=== PATIENT | male | born 1940 | race Caucasian/White ===

== ENCOUNTER 2021-05-25 10:32 | Emergency (ER) | payer SELFPAY ==
[~2021-05-25] VITALS: Ht 175.3 cm; Wt 79.5 kg
[2021-05-25] MEDS ORDERED: XARELTO10 MG PO (11:57)
[2021-05-25] MEDS ORDERED: LISINOPRIL5 MG PO (12:00)
[2021-05-25 12:25] VITALS: BP 129/73
== END 2021-05-25 12:25 | disposition home or self-care (01) | DRG 156 ==
LOC: ED 10:32
DX: H93.8X3 Other specified disorders of ear, bilateral (principal)

== ENCOUNTER 2022-05-08 01:12 | Inpatient (IN) | payer SELFPAY ==
[~2022-05-08] VITALS: Ht 175.3 cm; Wt 78.0 kg
[~2022-05-08 01:12] MED LIST: LISINOPRIL5 MG PO; XARELTO10 MG PO
--- NOTE | 2022-05-08 01:32 | NUR ---
IN ROOM ER 3
[2022-05-08 01:44] LABS: HEMATOCRIT 33.3 % (39.0-50.0); HEMOGLOBIN 11.5 g/dl (14.0-18.0); IMMATURE GRANULOCYTES 2.1 % (0.0-5.0); MEAN CELL VOLUME 89.5 fL CALC (80.0-100.0); MEAN CORPUSCULAR HGB 30.9 pG CALC (26.0-32.0); MEAN CORPUSCULAR HGB CONC 34.5 g/dL CAL (32.0-36.0); NEUT# 11.34 thou/uL (1.82-7.42); RED BLOOD COUNT 3.72 mill/uL (4.70-6.10); RED CELL DISTRI WIDTH 12.3 % (11.5-15.5)
[2022-05-08 01:52] LABS: URINE BILIRUBIN - DIPSTICK NEGATIVE (NEGATIVE); URINE BLOOD DIPSTICK NEGATIVE (NEGATIVE); URINE COLOR YELLOW; URINE GLUCOSE - DIPSTICK NEGATIVE (NEGATIVE); URINE KETONE NEGATIVE (NEGATIVE); URINE PROTEIN - DIPSTICK NEGATIVE (NEG-TRACE)
[2022-05-08 01:55] LABS: URINE LEUK ESTERASE SMALL (NEGATIVE); URINE NITRITE - DIPSTICK NEGATIVE (Negative)
[2022-05-08 02:03] LABS: URINE RBC 0-2 RBC/hpf (0-5)
[2022-05-08 02:08] LABS: ALBUMIN 3.5 g/dL (3.2-5.0); ALKALINE PHOSPHATASE 73 u/l (38-126); BUN 21 mg/dL (8-23); BUN/CREATININE RATIO 17 (12-20 (CALC)); CARBON DIOXIDE 27 mmol/l (22-30); CHLORIDE 89 mmol/l (95-108); CREATININE 1.2 mg/dL (0.7-1.3); GFR FOR AFR.AMER. > 60 ML/MIN (>=60 (CALC)); GFR OTHER RACES 58 ML/MIN (>=60 (CALC)); MAGNESIUM 1.8 mg/dL (1.6-2.3); SODIUM 123 mmol/l (137-146); TOTAL PROTEIN 6.7 g/dL (6.3-8.2)
[2022-05-08 02:09] LABS: ANION GAP 12 (6-22 (CALC)); BILIRUBIN, TOTAL 0.3 mg/dL (0.0-1.4); POTASSIUM 4.5 mmol/l (3.5-5.1); SGOT/AST 70 u/l (19-48)
[2022-05-08] MEDS ORDERED: DIGOXIN0.125 MG PO (03:36)
[2022-05-08] MEDS ORDERED: TAMSULOSIN HCL0.4 MG PO (03:36)
[2022-05-08] MEDS ORDERED: FINASTERIDE5 MG PO (03:37)
[2022-05-08] MEDS ORDERED: BACTRIM DS1 TAB PO (03:39)
--- NOTE | 2022-05-08 04:35 | NUR ---
PT ARRIVED TO [facility] @ 4205 VIA WHEELCHAIR, ACCOMPANIED BY MARILYN ROWE. RECEIVED REPORT FROM ER NURSE. PT ORIENTED TO ROOM AND USE OF CALL LIGHT. VS AND ASSESSMENT COMPLETED. PT A&O X3. EVEN AND UNLABORED RESPIRATIONS; CLEAR LUNG SOUNDS UPON AUSCULTATION. PT ON VIELKA. ACTIVE BOWEL SOPUNDS X4 QUADRANTS. IV SITE HEALTHY AND PATENT. PT ASSISTED WITH THE USE OF URINAL. PT UNSTEADY ON HIS FEET. BED ALARM ACTIVE AND SAFETY PRECAUTIONS IN PLACE. CALL LIGTH IN REACH.
[2022-05-08 06:58] VITALS: BP 100/55
--- NOTE | 2022-05-08 07:15 | NUR ---
REPORT GIVEN BY VASHTI DENSON. PATIENT ALERT AND ORIENT X 4. RESP EVEN AND UNLABORED WITH WHEEZING PRESENT RUL. 20 RAC INFUSING IV FLUIDS. NO TELEMETREY AT THIS TIME. FALL AND SAFTEY PRECAUTIONS IN PLACE. C/O NAUSEA AND VOMITING. CONDOM CATH PLACED ON PATIENT, DUE TO FREQ URINATION. STRONG PULSES. PLAN OF CARE DISCUSSED. PATIENT INFORMED TO CALL WITH ANY QUESTIONS OR CONCERNS.
--- NOTE | 2022-05-08 07:56 | NUR ---
PATIENT EXPERIENCING NAUSEA AND HEARTBURN. MEDICATIED PER MD ORDERS.
--- NOTE | 2022-05-08 09:22 | NUR ---
NEW IV STARTED. PATIENT STILL NAUSEA. MORNING MEDS PASSED, INFORMED PATIENT TO TELL STAFF IF HE VOMITS WITHIN THE NEXT 30 MIN.
--- NOTE | 2022-05-08 09:50 | NUR ---
ADJUSTED IV FLUIDS FROM 125 ML/HR TO 100 ML/HR PER MD ORDERS
--- NOTE | 2022-05-08 11:27 | NUR ---
CODE BROWN VERTICAL MOVE PER HOSPITAL POLICY. PATIENT MOVED AT 1058 IN ANR 6
--- NOTE | 2022-05-08 13:30 | NUR ---
IV FLUIDS ADJUSTED PER MD ORDERS TO 80 ML/HR
[2022-05-08 15:29] VITALS: BP 101/60
--- NOTE | 2022-05-08 15:30 | NUR ---
PATIENT RESTING WITH EYES CLOSED. RESP EVEN AND UNLABORED. NO S/S OF DISTRESS NOTED. FALL AND SAFTEY PRECAUTIONS IN PLACE.
[2022-05-08 19:00] VITALS: BP 106/61
--- NOTE | 2022-05-08 19:37 | NUR ---
PT RESTING IN BED NO SIGNS OF DISTRESS NOTED, RESP EVEN AND UNLABORED. PT VOICES NO NEEDS OR COMPLAINTS AT THIS TIME, SKIN INTACT, VSS, CONDOM CATHETER INTACT DRAINING CLEAR YELLOW URINE. DISCUSSED POC, VERBALIZED UNDERSTADING. DENIES ANY N/V AT THIS TIME. ASSESSMENT COMPLETED, CALL LIGHT IN REACH,CONTINUE TO MONITOR.
--- NOTE | 2022-05-08 20:53 | NUR ---
PT RESTING IN BED, MEDICATED PER OCT, CALL LIGHT IN REACH, BED ALARM IN PLACE. CONTINUE TO MONITOR.
--- NOTE | 2022-05-08 23:52 | NUR ---
PT MEDICATED PER MAR, PT VOICES NO NEEDS OR COMPLAINTS, CONDOM CATH EMPTIED OF 2000CC OF CLEAR YELLOW URINE. BED ALARM FOR SAFETY, CALL LIGHT IN REACH, CONTINUE TO MONITOR.
--- NOTE | 2022-05-09 03:53 | NUR ---
PT RESTING IN BED, VITALS OBTAINED, VOICES NO NEEDS OR COMPLAINTS AT THIS TIME, CALL LIGHT IN REACH, BED ALARM FOR SAFETY, CONTINUE TO MONITOR.
[2022-05-09 04:00] VITALS: BP 115/66
[2022-05-09 06:28] LABS: HEMATOCRIT 35.5 % (39.0-50.0); HEMOGLOBIN 11.9 g/dl (14.0-18.0); MEAN CELL VOLUME 92.4 fL CALC (80.0-100.0); MEAN CORPUSCULAR HGB CONC 33.5 g/dL CAL (32.0-36.0); RED BLOOD COUNT 3.84 mill/uL (4.70-6.10); RED CELL DISTRI WIDTH 12.4 % (11.5-15.5)
[2022-05-09 06:51] LABS: ALBUMIN 3.2 g/dL (3.2-5.0); ALKALINE PHOSPHATASE 68 u/l (38-126); BUN 17 mg/dL (8-23); BUN/CREATININE RATIO 15 (12-20 (CALC)); CARBON DIOXIDE 27 mmol/l (22-30); CREATININE 1.1 mg/dL (0.7-1.3); GFR FOR AFR.AMER. > 60 ML/MIN (>=60 (CALC)); GFR OTHER RACES > 60 ML/MIN (>=60 (CALC)); SGOT/AST 62 u/l (19-48); TOTAL PROTEIN 5.8 g/dL (6.3-8.2)
[2022-05-09 06:52] VITALS: BP 120/70
[2022-05-09 06:52] LABS: ANION GAP 8 (6-22 (CALC)); BILIRUBIN, TOTAL 0.7 mg/dL (0.0-1.4); CHLORIDE 104 mmol/l (95-108); MAGNESIUM 2.3 mg/dL (1.6-2.3); SODIUM 135 mmol/l (137-146)
--- NOTE | 2022-05-09 07:40 | NUR ---
SHIFT CHANGE REPORT, PT TRANSFERRED BACK TO UNIT AND SETTLED IN ROOM IN RECLINER, ALERT AND ORIENTED, IVF INFUSING, CONDOM CATHETER IN PLACE WITH PALE YELLOW URINE, BODY ALARM ACTIVATED, SET UP FOR MEAL AT THIS TIME.
[2022-05-09 10:31] VITALS: BP 113/70
--- NOTE | 2022-05-09 11:36 | NUR ---
RELAXING IN RECLINER AT THIS TIME, ASKS [facility] ABOUT D/C PLANS, ADVISED NURSE WILL REVIEW MD NOTES AND GIVE MORE INFORMATION ON PLANS, STATES UNDERSTANDING.
--- NOTE | 2022-05-09 12:05 | NUR ---
AWAITING INFORMATION ON WHETHER OR NOT GOING HOME, HAVING MEAL AT THIS TIME.
[2022-05-09 16:04] VITALS: BP 109/65
--- NOTE | 2022-05-09 16:23 | NUR ---
REMAINS SITTING QUIETLY IN RECLINER, ADVISED MD WILL NOT BE SENDING HIM HOME HE PREVIOUSLY THOUGHT, HE STATED UNDERSTANDING, CALL [place] IN REACH.
[2022-05-09 18:54] VITALS: BP 107/63
--- NOTE | 2022-05-09 19:30 | NUR ---
PATIENT SITTING UP IN THE RECLINER-AWAKE ALERT AND ORIENTED TO PERSON AND PLACE. PATIENT WITH CONDOM CATH IN PLACE AND EMPTIED FOR 900CC OF [place]EX[place] URINE. SALINE LOCK INTACT TO LAC AND NS PATENT AND INFUSING VIALEFT HAND SITE ORDERED. LUNGS ARE CLEAR. ABD IS SOFT WITH ACTIVE BS. PATIENT NOT SURE WHEN HIS LAST BM WAS. NO PERIPHERAL EDEMA NOTED. PULSES ARE PALPABLE. CHAIR ALARM IN PLACE FOR PATIENT SAFETY. SAFETY PRECAUTIONS REINFORCED. CALL LIGHT IN REACH. WILL CONT TO MONITOR.
--- NOTE | 2022-05-09 21:00 | NUR ---
PATIENT PROVIDED WITH HS SNACK. REMOVED CONDOM CATH AT THIS TIME. STATES THAT HE WILL USE URINAL WHEN HE HAS TO URINATE. URINAL IN REACH. REMAINS IN RECLINER PER PATIENT REQUEST. CHAIR ALARM REMAINS IN PLACE FOR PATIENT SAFETY. SAFETY PRECAUTIONS REINFORCED. CALL LIGHT IN REACH. WILL CONT TO MONITOR.
--- NOTE | 2022-05-09 22:00 | NUR ---
PATIENT ASSISTED TO THE BR TO HAVE SMALL BM AND VOIDED IN THE TOILET. ASSISTED BACK TO RECLINER PER PATIENT REQUEST. CHAIR ALARM IN PLACE FOR PATIENT SAFETY. CALL LIGHT IN REACH. WILL CONT TO MONITOR.
--- NOTE | 2022-05-10 01:00 | NUR ---
PATIENT APPEARS SLEEPING IN RECLINER WITH EYES CLOSED AND RESPS ARE EVEN AND UNLABORED. IVF PATENT AND INFUSING VIA LEFT HAND SITE. CHAIR ALARM IN PLACE FOR PATIENT SAFETY. CALL LIGHT IN REACH. WILL CONT TO MONITOR.
[2022-05-10 04:03] LABS: HEMATOCRIT 37.2 % (39.0-50.0); HEMOGLOBIN 12.1 g/dl (14.0-18.0); MEAN CELL VOLUME 92.8 fL CALC (80.0-100.0); MEAN CORPUSCULAR HGB 30.2 pG CALC (26.0-32.0); MEAN CORPUSCULAR HGB CONC 32.5 g/dL CAL (32.0-36.0); RED BLOOD COUNT 4.01 mill/uL (4.70-6.10); RED CELL DISTRI WIDTH 12.4 % (11.5-15.5)
--- NOTE | 2022-05-10 04:06 | NUR ---
PATIENT REMAINS UP IN RECLINER WITHCHAIR ALARM IN PLACE FOR PATIENT SAFETY. EYES ARE CLOSED AND RESPS ARE EVEN AND UNLABORED. IVF PATENT AND INFUSING VIA LEFT HAND SITE. CALL LIGHT IN REACH. WILL CONT TO MONITOR.
[2022-05-10 04:15] VITALS: BP 135/85
[2022-05-10 04:32] LABS: ANION GAP 10 (6-22 (CALC)); BUN 21 mg/dL (8-23); BUN/CREATININE RATIO 19 (12-20 (CALC)); CARBON DIOXIDE 28 mmol/l (22-30); CHLORIDE 99 mmol/l (95-108); CREATININE 1.1 mg/dL (0.7-1.3); GFR FOR AFR.AMER. > 60 ML/MIN (>=60 (CALC)); GFR OTHER RACES > 60 ML/MIN (>=60 (CALC)); MAGNESIUM 2.2 mg/dL (1.6-2.3); SODIUM 134 mmol/l (137-146)
--- NOTE | 2022-05-10 08:00 | NUR ---
PT SITTING ON RECLINER: A&O X3. EVEN AND UNLABORED RESPIRATIONS; CLEAR LUNG SOUNDS UPON AUSCULTATION. IV SITES HEALTHY AND PATENT. ACTIVE BOWEL SOUNDS X4 QUADRANTS. SAFETY PRECAUTIONS IN PLACE WITH CALL LIGHT IN REACH.
[2022-05-10] MEDS ORDERED: CIPROFLOXACN500 MG PO (09:59)
[2022-05-10 10:00] VITALS: BP 104/72
--- NOTE | 2022-05-10 11:55 | NUR ---
RECEIVE REPORT FROM JARETT KINGSTON. PT RESTING IN THE CHAIR, STABLE AT HTIS TIME.
--- NOTE | 2022-05-10 13:19 | NUR ---
PATIENT IS DISCHARGE HOME STABLE AT THIS TIME. EDUCATED PATIENT ABOUD MEDICATIONS, HOME CARE AND FOLLOW UP. PT REFER UNDERSTAND.
== END 2022-05-10 13:56 | disposition home or self-care (01) | DRG 641 ==
LOC: ED 01:12 → MS2 03:46
PROVIDERS: Family Medicine; ADMIT Internal Medicine; ATTEND Internal Medicine
DX: E87.1 Hypo-osmolality and hyponatremia (principal); N39.0 Urinary tract infection, site not specified; R06.6 Hiccough; I48.91 Unspecified atrial fibrillation; N40.0 Benign prostatic hyperplasia without lower urinary tract symptoms; Z95.2 Presence of prosthetic heart valve; Z79.01 Long term (current) use of anticoagulants; Z20.822 Contact with and (suspected) exposure to COVID-19; B96.89 Other specified bacterial agents as the cause of diseases classified elsewhere
CPT/HCPCS: J1650

== ENCOUNTER 2024-05-24 10:07 | Emergency (ER) | payer SELFPAY ==
[2024-05-24] VITALS (15 sets, daily range): BP systolic 112–148; BP diastolic 68–98
[~2024-05-24] VITALS: Ht 175.3 cm; Wt 77.1 kg
[~2024-05-24 10:07] MED LIST changes: +BACTRIM DS1 TAB PO; +CIPROFLOXACN500 MG PO; +DIGOXIN0.125 MG PO; +FINASTERIDE5 MG PO; +TAMSULOSIN HCL0.4 MG PO
[2024-05-24] MEDS ORDERED: TETRACAINE HCL 0.5 %/4 ML SOL ONE (10:54)
[2024-05-24] MEDS ORDERED: FLUORESCEIN SODIUM 1 MG EA OD ONE (11:00)
[2024-05-24] MEDS ORDERED: AMPICILLIN & SULBACTAM SODIUM 3 GM in SODIUM CHLORIDE 0.9% 100 ML IV ONE (11:05)
[2024-05-24 11:27] LABS: BASO% 0.7 % (0-3); CREATININE 1.2 mg/dL (0.7-1.3); EOS% 0.9 % (0-8); IMMATURE GRANULOCYTES 0.3 % (0.0-5.0); LYMPH% 11.4 % (15-41); MEAN CELL VOLUME 93.7 fL CALC (80.0-100.0); MEAN CORPUSCULAR HGB 30.4 pG CALC (26.0-32.0); MEAN CORPUSCULAR HGB CONC 32.4 g/dL CAL (32.0-36.0); MONO% 8.1 % (2-13); NEUT# 7.25 thou/uL (1.82-7.42); NEUT% 78.6 % (42-76); RED BLOOD COUNT 4.77 mill/uL (4.70-6.10); RED CELL DISTRI WIDTH 12.4 % (11.5-15.5)
[2024-05-24 11:28] LABS: HEMATOCRIT 44.7 % (39.0-50.0); HEMOGLOBIN 14.5 g/dl (14.0-18.0)
[2024-05-24 11:29] LABS: ALBUMIN 4.2 g/dL (3.2-5.0); TOTAL PROTEIN 7.4 g/dL (6.3-8.2)
[2024-05-24] MEDS ORDERED: AMOX/K CLAV875 M1 PO ×2 (13:58→13:59)
[2024-05-24] MEDS ORDERED: VALACYCLOVIR HYD1 GM PO ×2 (13:58→13:59)
[2024-05-24] MEDS ORDERED: BACTRIM DS1 TAB PO ×2 (13:58→13:59)
== END 2024-05-24 14:25 | disposition home or self-care (01) | DRG 125 ==
LOC: ED 10:07
PROVIDERS: Family Medicine
DX: B02.39 Other herpes zoster eye disease (principal); Z95.2 Presence of prosthetic heart valve
CPT/HCPCS: Q9967